=== PATIENT | male | born 1965 | race Caucasian/White ===

== ENCOUNTER 2018-07-13 15:27 | Emergency (ER) | payer MEDICAID ==
[~2018-07-13] VITALS: Ht 182.9 cm; Wt 90.0 kg
[~2018-07-13 15:27] MED LIST: GABA800T PO; NO HOME MEDS; QUET-1 PO; WEL100T PO
[2018-07-13 15:32] VITALS: BP 114/86
== END 2018-07-13 18:09 | disposition left against medical advice (07) ==
LOC: ER 15:27
DX: N48.89 Other specified disorders of penis (principal); G89.29 Other chronic pain; F12.90 Cannabis use, unspecified, uncomplicated; F15.90 Other stimulant use, unspecified, uncomplicated; Z59.0 Homelessness; Z79.899 Other long term (current) drug therapy
CPT/HCPCS: 99284

== ENCOUNTER 2019-01-05 03:20 | Emergency (ER) | payer MEDICAID ==
[~2019-01-05] VITALS: Ht 193 cm; Wt 100.0 kg
[2019-01-05 03:26] VITALS: BP 169/72
[2019-01-05] MEDS ORDERED: CEPH500C5 PO (05:26)
== END 2019-01-05 05:33 | disposition home or self-care (01) ==
LOC: ER 03:21
DX: N48.1 Balanitis (principal); M70.22 Olecranon bursitis, left elbow; G89.29 Other chronic pain; F12.90 Cannabis use, unspecified, uncomplicated; F15.90 Other stimulant use, unspecified, uncomplicated; Z59.0 Homelessness; Z79.2 Long term (current) use of antibiotics; Z79.899 Other long term (current) drug therapy; Y93.89 Activity, other specified
CPT/HCPCS: 20605; 99284

== ENCOUNTER 2019-03-08 00:10 | Emergency (ER) | payer MEDICAID ==
[~2019-03-08] VITALS: Ht 193 cm; Wt 86.4 kg
[~2019-03-08 00:10] MED LIST changes: +CEPH500C5 PO
[2019-03-08 00:16] VITALS: BP 149/87
[2019-03-08] MEDS ORDERED: TETanus/Pertussis (Acell)/Diphther VAC/PF (Tdap-Adult) 0.5ml syringe IM ONE (01:10)
[2019-03-08] MEDS ORDERED: bacitracin 15gm ointment TP ONE (01:10)
[2019-03-08] MEDS ORDERED: ondansetron 4mg rapidly disintigrating tab PO ONE (01:15)
[2019-03-08] MEDS ORDERED: sulfamethoxazole/trimethoprim DS (800/160mg) tablet PO ONE (01:15)
[2019-03-08] MEDS ORDERED: SULF1TAB49 PO (01:47)
== END 2019-03-08 01:59 | disposition home or self-care (01) ==
LOC: ER 00:11
DX: L02.212 Cutaneous abscess of back [any part, except buttock and flank] (principal); G89.29 Other chronic pain; F17.210 Nicotine dependence, cigarettes, uncomplicated; F12.90 Cannabis use, unspecified, uncomplicated; F15.90 Other stimulant use, unspecified, uncomplicated; Z59.0 Homelessness; Z79.2 Long term (current) use of antibiotics; Z79.899 Other long term (current) drug therapy
CPT/HCPCS: 10060; 90471; 90715; 99284